=== PATIENT | male | born 1970 | race Caucasian/White ===

== ENCOUNTER 2021-09-19 01:50 | Emergency (ER) | payer OTHER ==
[~2021-09-19 01:50] MED LIST: LEVAQUIN500 MG PO
[2021-09-19 02:14] LABS: BASOPHIL 0.5 % (0-2); EOSINOPHIL 0 % (0-5); HCT 43.2 % (42.0-52.0); HGB 13.6 g/dl (13.2-18.0); LYMPHOCYTE 10.1 % (15-48); MCH 28.1 pg (25.0-31.0); MCHC 31.5 g/dL (32.0-36.0); MCV 89.3 fL (78.0-100.0); MONOCYTE 7.9 % (0-12); MPV 9.7 fL (6.0-9.5); NEUTROPHIL 80.1 % (41-80); NRBC 0.4; PLT 293 K/uL (150-400); RBC 4.84 M/uL (4.70-6.00); RDW 16.1 % (11.5-14.0); WBC 15.1 K/uL (4.0-10.5)
[2021-09-19 02:50] LABS: ALBUMIN 3.3 g/dL (3.4-5.0); BILIRUBIN - TOTAL 1.1 mg/dL (0.2-1.0); BUN/CREAT RATIO (CALC) 24.8 RATIO; CREATININE 1.09 mg/dL (0.67-1.17); GLOBULIN (CALCULATION) 4.2 g/dL; POTASSIUM 4.5 mmol/L (3.5-5.1); TOTAL PROTEIN 7.5 g/dL (6.4-8.2)
[2021-09-19 02:54] LABS: INFLUENZA A NAA NEGATIVE (NEGATIVE)
[2021-09-19 02:58] LABS: CORONAVIRUS 2019 SARS-COV-2 POSITIVE (NEGATIVE); LACTIC ACID 2.4 mmol/L (0.4-1.9)
[2021-09-19 03:36] LABS: BILIRUBIN NEGATIVE (NEGATIVE); BLOOD 1+ Ery/uL (NEGATIVE); CLARITY CLEAR (CLEAR); COLOR YELLOW (YELLOW); GLUCOSE (U) 3+ mg/dL (NORMAL); LEUKOCYTES NEGATIVE Leu/uL (NEGATIVE); NITRITE NEGATIVE (NEGATIVE); PROTEIN NEGATIVE (NEGATIVE); UROBILINOGEN 0.2 mg/dL (0.2-1.0); pH 5.5 (5.0-9.0)
[2021-09-19 03:46] LABS: BACTERIA TRACE
[2021-09-20 05:13] LABS: BASOPHIL 0.2 % (0-2); EOSINOPHIL 0 % (0-5); HCT 47.1 % (42.0-52.0); HGB 13.8 g/dl (13.2-18.0); LYMPHOCYTE 6.1 % (15-48); MCH 27.9 pg (25.0-31.0); MCHC 29.3 g/dL (32.0-36.0); MONOCYTE 6.1 % (0-12); MPV 10.2 fL (6.0-9.5); NEUTROPHIL 86.6 % (41-80); NRBC 0; PLT 254 K/uL (150-400); RBC 4.95 M/uL (4.70-6.00); RDW 15.9 % (11.5-14.0); WBC 15.6 K/uL (4.0-10.5)
[2021-09-20 05:19] LABS: MCV 95.2 fL (78.0-100.0)
[2021-09-20 05:26] LABS: BUN/CREAT RATIO (CALC) 43.4 RATIO; CREATININE 0.99 mg/dL (0.67-1.17); POTASSIUM 4.9 mmol/L (3.5-5.1)
== END 2021-09-20 15:41 | disposition other institution (70) ==
LOC: FER 01:50
PROVIDERS: Emergency Medicine Emergency Medical Services; Internal Medicine
DX: U07.1 COVID-19 (principal); J12.82 Pneumonia due to coronavirus disease 2019; J96.01 Acute respiratory failure with hypoxia; E66.9 Obesity, unspecified; I10 Essential (primary) hypertension; E11.9 Type 2 diabetes mellitus without complications; Z79.4 Long term (current) use of insulin; Z88.0 Allergy status to penicillin; Z88.6 Allergy status to analgesic agent; Z79.899 Other long term (current) drug therapy
CPT/HCPCS: 36415; 36600; 71045; 80048; 80053; 81001; 82803; 83605; 83880; 84145; 84484; 85025; 85379; 87040; 87088; 93005; 96372; C9113; C9399; J1100; J1650; J1940; J2270; J2405; J2543; J2800; J7050; U0002